=== PATIENT | male | born 1950 | race Caucasian/White ===

== ENCOUNTER 2020-08-26 06:10 | Day surgery (SDC) | payer OTHER, SELFPAY ==
[2020-08-26 06:24] VITALS: BP 100/60; PULSE 70; RESP 20; TEMP 36.5; O2SAT 96
[2020-08-26] MEDS: Lactated Ringers 1,000 ML 80 ML IV (07:07)
[2020-08-26] MEDS: Povidone-Iodine Soln. 118 ML BTL TP (07:07)
--- NOTE | 2020-08-26 07:11 | W.PM.HP.N ---
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 Nonsurgical options have failed to provide significant relief of symptoms. He is opting for surgical intervention. [facility] Medical History Acquired cystic kidney disease Adenomatous polyp Cervical radiculopathy 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 pt. states he has had asthma since he was a kid COPD (chronic obstructive pulmonary disease) Hyperlipemia Hypertension Hypomagnesemia Increased white blood cell count Intestinal obstruction Kidney disorder Malignant tumor of larynx Nicotine dependence TIFFANY (obstructive sleep apnea) Psychophysiologic insomnia Raised prostate specific antigen Sinusitis Spasm of muscle, back Syncope and collapse Type II diabetes mellitus Surgical History H/O colonoscopy History of back surgery History of cholecystectomy History of ear surgery Inner ear surgery History of esophagogastroduodenoscopy (EGD) History of throat surgery Cancerous lump removed from throat History of tonsillectomy Hx of appendectomy Hx of knee surgery Social History Smoking/Tobacco Use Status: Current every day Tobacco Type: cigarettes Smoking risk assessment performed?: Yes Alcohol Intake: never Substance use type: does not use Additional Social history: daughter is here, unable to assess privately Meds Allergies and Home Medications Allergies Allergy/AdvReac Type Severity Reaction Status Date / Time acetaminophen Allergy Severe Hives Unverified 08/24/20 14:32 bee pollen Allergy Severe Anaphylaxis Unverified 08/24/20 14:32 clindamycin Allergy Severe Hives Unverified 08/24/20 14:32 meperidine [From Demerol] Allergy Severe Anaphylaxis Unverified 08/24/20 14:32 Penicillins Allergy Severe Hives Unverified 08/24/20 14:32 Sulfa (Sulfonamide Allergy Severe Hives Unverified 08/24/20 14:32 Antibiotics) Home Medications Medication Instructions Recorded Confirmed Type albuterol sulfate 2.5 mg INHALATION QID PRN 08/24/20 08/26/20 History amlodipine [Norvasc] 5 mg PO HS 08/24/20 08/26/20 History aspirin 81 mg PO DAILY 08/24/20 08/24/20 History atorvastatin 80 mg PO HS 08/24/20 08/26/20 History budesonide-formoterol [Symbicort] 1 puff INHALATION DAILY 08/24/20 08/26/20 History buspirone 15 mg PO BID 08/24/20 08/26/20 History clonazepam 1 mg PO HS 08/24/20 08/26/20 History diphenhydramine HCl 25 mg PO HS 08/24/20 08/26/20 History enalapril maleate [Vasotec] 2.5 mg PO HS 08/24/20 08/26/20 History gabapentin 600 mg PO TID 08/24/20 08/26/20 History ibuprofen 600 mg PO Q8H PRN 08/24/20 08/26/20 History ipratropium bromide 3 ml INHALATION QID 08/24/20 08/26/20 History isosorbide mononitrate 60 mg PO DAILY 08/24/20 08/26/20 History linaclotide [Linzess] 145 mcg PO DAILY PRN 08/24/20 08/26/20 History lorazepam 2 mg PO HS 08/24/20 08/26/20 History magnesium hydroxide [Milk of 400 mg PO DAILY PRN 08/24/20 08/26/20 History Magnesia] melatonin 1 mg PO HS 08/24/20 08/26/20 History metformin 500 mg PO BID 08/24/20 08/26/20 History nitroglycerin 0.4 mg SUBLINGUAL DIRECTED PRN 08/24/20 08/26/20 History oxycodone 15 mg PO Q4H PRN 08/24/20 08/26/20 History zolpidem [Ambien] 10 mg PO HS 08/24/20 08/26/20 History Exam Narrative Exam Narrative: 70-year-old male in no acute distress for surgical resection symptomatic first metatarsocuneiform joint exostosis of the right foot. Head normal cephalic Eyes PERRLA Hearing is adequate Heart had regular rate and rhythm I detected no gallops rubs or murmurs Lung correa were clear Abdomen was soft nontender bowel sounds appreciated Peripheral pulses are manually palpable at the ankle plus 1 out of 4 bilaterally capillary refills under 3 seconds to all toes no edema. A large first metatarsocuneiform dorsal exostosis is noted right foot with tenderness noted around the joint region as well as the overlying structures. Neurologically grossly intact toes are downgoing no focal deficits Impressions: Symptomatic right first metatarsocuneiform dorsal exostosis formation Plan: Shelton is being brought to the OR for surgical resection exostosis from the right midfoot. He understands risk and complications of surgery pertaining to the potential for pain, scarring, infection, instability the first metatarsocuneiform joint with advancing degenerative arthrosis requiring potential revisional procedures including fusion. No promises have been made to the final outcome of surgery. Informed consent has been obtained. Results Last Vital Signs Temp 36.5 C 08/26/20 06:24 Pulse 70 08/26/20 06:24 Resp 20 08/26/20 06:24 BP 100/60 08/26/20 06:24 Pulse Ox 96 08/26/20 06:24
--- NOTE | 2020-08-26 07:13 | W.ANESPRE ---
General Info Date of Service Date Performed: 08/26/20 Height: 6 ft 3.98 in Weight: 116.4 kg Body Mass Index (BMI): 31.2 Surgical Procedure: Operation Date: 08/26/20 07:40 Proposed Procedures Side Surgeon p EXOSECTOMY RT MID FOOT Right Conrad Samuels DPM Meds Allergies and Home Medications Allergies Allergy/AdvReac Type Severity Reaction Status Date / Time acetaminophen Allergy Severe Hives Unverified 08/24/20 14:32 bee pollen Allergy Severe Anaphylaxis Unverified 08/24/20 14:32 clindamycin Allergy Severe Hives Unverified 08/24/20 14:32 meperidine [From Demerol] Allergy Severe Anaphylaxis Unverified 08/24/20 14:32 Penicillins Allergy Severe Hives Unverified 08/24/20 14:32 Sulfa (Sulfonamide Allergy Severe Hives Unverified 08/24/20 14:32 Antibiotics) Home Medication Medication Instructions Recorded albuterol sulfate 2.5 mg INHALATION QID PRN 08/24/20 amlodipine [Norvasc] 5 mg PO HS 08/24/20 aspirin 81 mg PO DAILY 08/24/20 atorvastatin 80 mg PO HS 08/24/20 budesonide-formoterol [Symbicort] 1 puff INHALATION DAILY 08/24/20 buspirone 15 mg PO BID 08/24/20 clonazepam 1 mg PO HS 08/24/20 diphenhydramine HCl 25 mg PO HS 08/24/20 enalapril maleate [Vasotec] 2.5 mg PO HS 08/24/20 gabapentin 600 mg PO TID 08/24/20 ibuprofen 600 mg PO Q8H PRN 08/24/20 ipratropium bromide 3 ml INHALATION QID 08/24/20 isosorbide mononitrate 60 mg PO DAILY 08/24/20 linaclotide [Linzess] 145 mcg PO DAILY PRN 08/24/20 lorazepam 2 mg PO HS 08/24/20 magnesium hydroxide [Milk of 400 mg PO DAILY PRN 08/24/20 Magnesia] melatonin 1 mg PO HS 08/24/20 metformin 500 mg PO BID 08/24/20 nitroglycerin 0.4 mg SUBLINGUAL DIRECTED PRN 08/24/20 oxycodone 15 mg PO Q4H PRN 08/24/20 zolpidem [Ambien] 10 mg PO HS 08/24/20 Current Visit Medications: Current Medications Generic Name Dose Route Start Last Admin Trade Name Freq PRN Reason Stop Dose Admin Sodium Chloride 500 mls @ 0 mls/hr 08/26/20 06:00 Saline 500ml Bag IV PRN PRN As Directed Ringer's Solution 1,000 mls @ 80 mls/hr 08/26/20 06:00 IV 09/24/20 23:59 INFUSION SHELLIE Vancomycin HCl 500 mg/ Sodium 100 mls @ 100 mls/hr 08/26/20 06:00 Chloride IVPB 08/26/20 16:00 PREOP SHELLIE IV Miscellaneous Supplies 1 each 08/26/20 06:00 Iv Access IV DIRECTED SHELLIE IV Miscellaneous Supplies 1 each 08/26/20 06:00 Iv Access IV 09/24/20 23:59 DIRECTED SHELLIE Povidone Iodine 0 ml 08/26/20 06:00 Povidone-Iodine Soln. 118 Ml Btl TP DIRECTED SHELLIE Sodium Chloride 0 ml 08/26/20 06:00 Normal Saline Flush 10 Ml Syr IVP PRN PRN Sodium Chloride 0 ml 08/26/20 06:00 Normal Saline Flush 10 Ml Syr IV 09/24/20 23:59 PRN PRN Sodium Chloride 0 ml 08/26/20 06:00 Normal Saline 10 Ml Vial IJ 09/24/20 23:59 DIRECTED PRN Sterile Water 0 ml 08/26/20 06:00 Water,Injection,Sterile 10 Ml Vial IJ 09/24/20 23:59 DIRECTED PRN PFS Medical History Medical History Acquired cystic kidney disease Adenomatous polyp Cervical radiculopathy 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 pt. states he has had asthma since he was a kid COPD (chronic obstructive pulmonary disease) Hyperlipemia Hypertension Hypomagnesemia Increased white blood cell count Intestinal obstruction Kidney disorder Malignant tumor of larynx Nicotine dependence TIFFANY (obstructive sleep apnea) Psychophysiologic insomnia Raised prostate specific antigen Sinusitis Spasm of muscle, back Syncope and collapse Type II diabetes mellitus Surgical History Surgical History H/O colonoscopy History of back surgery History of cholecystectomy History of ear surgery Inner ear surgery History of esophagogastroduodenoscopy (EGD) History of throat surgery Cancerous lump removed from throat History of tonsillectomy Hx of appendectomy Hx of knee surgery Tobacco Smoking/Tobacco Use Status: Current every day Tobacco Type: cigarettes Alcohol Alcohol Intake: never Substance Use Substance use type: does not use Vital Signs and Lab Results Vital Signs Most Recent Vital Signs in EMR: Most Recent Vital Signs Temp Pulse Resp BP Pulse Ox 36.5 C 70 20 100/60 96 08/26/20 06:24 08/26/20 06:24 08/26/20 06:24 08/26/20 06:24 08/26/20 06:24 Lab Results Blood Type / Crossmatch: No Data to Display Complete Blood Count: No Data to Display Complete Metabolic Panel: No Data to Display Liver Function Panel: No Data to Display Coagulation Panel: No Data to Display Cardiac Panel: No Data to Display Arterial Blood Gas: No Data to Display Venous Blood Gas: No Data to Display Pancreas Panel: No Data to Display Thyroid Panel: No Data to Display Infectious Disease: No Data to Display Blood Cultures: No Data to Display Toxicology Panel: No Data to Display Anesthesia Assessment and Plan Anesthesia History Personal History: No History of Anesthesia Complications Family History: No Family History of Anesthesia Complications Exercise Tolerance Exercise Tolerance: Metabolic Equivalents<4 Pertinent Negatives Pertinent Negatives: No Symptoms of GERD (Rare. Occasional med) and No Major Cardiovascular Symptoms or Complaints Cardiac & Pulmonary Exam Cardiac Exam: Normal S1/S2 Heart Sounds Pulmonary Exam: Clear Bilateral Breath Sounds Airway Exam Known Difficult Airway: No Mallampati Class: 3 Mouth Opening: Normal (> 3cm) Thyromental Distance: Greater than 3 cm Neck Range of Motion: Full ROM Neck Circumference: Normal Teeth Condition: Removable Dentures/Plates Lower ASA Classification ASA Score: ASA 2 Emergency Case?: No NPO Status NPO Status: NPO Clears >2 hours, Solids >8 hours Anesthesia Plan Resuscitation Status: Full Code Anesthesia Technique: General Anesthesia Airway Planned: Natural Airway Monitors Used: Standard Monitors
[2020-08-26 07:17] VITALS: BMI 31.2
[2020-08-26] MEDS: VANCOMYCIN 500 MG in Normal Saline 100 ML 100 MG IVPB (07:36)
[2020-08-26] MEDS: Lidocaine 1% Multi-Dose 50 ML VIAL (08:07)
[2020-08-26] MEDS: Bupivacaine 0.5% Pres-Free 30 ML VIAL (08:09)
[2020-08-26] MEDS: Dexamethasone 4 MG/ML VIAL (08:16)
--- NOTE | 2020-08-26 08:28 | W.PM.DSUDISC ---
Discharge Plan Disposition Patient Disposition: HOME Condition: Good Discharge Details Reason For Visit: Resection first metatarsocuneiform exostosis right Attending Provider: Conrad Samuels Primary Care Provider: Carmella Hoover Home Meds and New Rx's Prescriptions: Continued atorvastatin 80 mg Tablet 80 mg PO HS RF: 0 gabapentin 600 mg Tablet 600 mg PO TID RF: 0 albuterol sulfate 2.5 mg /3 mL (0.083 %) Solution For Nebulization 2.5 mg inhalation QID PRNRF: 0 enalapril maleate [Vasotec] 2.5 mg Tablet 2.5 mg PO HS RF: 0 amlodipine [Norvasc] 5 mg Tablet 5 mg PO HS RF: 0 oxycodone 15 mg Tablet 15 mg PO Q4H PRNRF: 0 aspirin 81 mg Capsule,Delayed Release(Dr/Ec) 81 mg PO DAILY RF: 0 isosorbide mononitrate 60 mg Tablet Extended Release 24 Hr 60 mg PO DAILY RF: 0 magnesium hydroxide [Milk of Magnesia] 400 mg/5 mL Suspension 400 mg PO DAILY PRNRF: 0 lorazepam 2 mg Tablet 2 mg PO HS RF: 0 diphenhydramine HCl 25 mg Tablet 25 mg PO HS RF: 0 nitroglycerin 0.4 mg Tablet, Sublingual 0.4 mg sublingual DIRECTED PRNRF: 0 ibuprofen 600 mg Tablet 600 mg PO Q8H PRNRF: 0 zolpidem [Ambien] 10 mg Tablet 10 mg PO HS RF: 0 metformin 500 mg Tablet Extended Release 24 Hr 500 mg PO BID RF: 0 ipratropium bromide 0.02 % Solution 3 ml inhalation QID RF: 0 buspirone 15 mg Tablet 15 mg PO BID RF: 0 clonazepam 1 mg Tablet,Disintegrating 1 mg PO HS RF: 0 melatonin 1 mg Tablet 1 mg PO HS RF: 0 budesonide-formoterol [Symbicort] 80-4.5 mcg/actuation Hfa Aerosol Inhaler 1 puff INHALATION DAILY RF: 0 Linzess 145 mcg Capsule 145 mcg PO DAILY PRNRF: 0 Discharge Instructions Activity:: Elevate Remove Dressings/Wound Care:: Do Not Remove Shower/Bathe:: Cover Diet:: Normal Diet Discharge Orders Discharge Orders: Discharge Order (Routine); Ordered 08/26/20 Ordered By: Conrad Samuels DS: Diagnosis Discharge Diagnosis (1) Exostosis of bone of foot: Status: Acute
--- NOTE | 2020-08-26 08:30 | W.PM.OP ---
Date of service: 08/26/20 Time of Service: 08:30 Operative Note Operative Note Refer to Anesthesia Record Preop diagnosis first metatarsocuneiform joint exostosis of the right foot Postop diagnosis same Anesthesia: Local anesthetic applied to the operative site consisting of 10 cc 50: 50 mixture 1% lidocaine plain, 0.5% Marcaine plain Operative indications 70-year-old male with pain associated with a midtarsal dorsal exostosis of the right first metatarsal cuneiform joint interfering with shoe gear and comfortable ambulation. Shelton was brought to the operative suite placed in the supine position with the right foot prepped and draped in the usual sterile podiatric fashion. Timeout was performed for safety surgery by protocol. Anesthesia being obtained the right foot was exsanguinated and a well-padded ankle tourniquet inflated 250 mmHg. Attention was directed to the first metatarsocuneiform joint dorsally where a large bony exostosis noted. Incision was placed directly over the exostosis measuring 2-1/2 cm in length. The incision was placed in controlled depth fashion going through the skin. The deeper layers was then dissected moving the extensor tendons laterally and dissecting down to the periosteum. The periosteum was incised midline and retracted medially and laterally. Large dorsal exostoses from the first metatarsal base cuneiform joint observed. With osteotome and mallet the exostosis was resected proximally distally medially and laterally. A hand rasp was then used to smooth all rough and bony edges. Copious irrigation was performed. Good resection of bone noted. The periosteum was repaired with 3-0 Vicryl, the subcutaneous layer was repaired with 3-0 Vicryl then 4-0 Vicryl and the skin was coapted with continuous running 4-0 Monocryl suture. 4 mg of dexamethasone phosphate was infused within the wound. Mastisol half-inch Steri-Strips applied. Xeroform gauze fluff compression dressings applied. Tourniquet was released at approximately 30 minutes with vascularity returning immediately to all toes. Sharp and sponge counts were correct x2. Patient was transferred to day surgery and will be followed by myself in the office next week.
[2020-08-26 08:31] VITALS: BP 109/67; PULSE 71; RESP 18; TEMP 36.8; O2SAT 94
--- NOTE | 2020-08-26 08:35 | W.ANESPOSTOP ---
Postoperative Evaluation Date, Time and Location Date Performed: 08/26/20 Time Performed: 08:35 Patient Location: Day Surgery Unit Vital Signs Most Recent Imported Vital Signs: Most Recent Vital Signs Temp Pulse Resp BP Pulse Ox 36.5 C 70 20 100/60 96 08/26/20 06:24 08/26/20 06:24 08/26/20 06:24 08/26/20 06:24 08/26/20 06:24 Most Recent Manually Entered Vital Signs: Adult Blood Pressure: 109/67 Heart Rate: 72 Respirations: 18 Oxygen Saturation (%): 94 Temperature (C): 36 C Pain Score (0-10 Scale): 0 Pain Score Most Recent Pain Score: 0 Assessment Mental Status: Arousable with meaningful communication Airway and Respiratory Function: Patent airway with normal (patient baseline) respiratory exam Cardiovascular Function: Hemodynamically Stable Hydration Status: Adequately Hydrated Nausea & Vomiting: No Nausea or Vomiting Pain: Pt. Denies Any Pain Peripheral Nerve Block: Patient did not receive a nerve block
[2020-08-26 08:37] VITALS: BP 109/67; PULSE 72; RESP 18; TEMPC 36; O2SAT 94
[2020-08-26 09:06] VITALS: BP 110/44; PULSE 65; RESP 16; TEMP 36.2; O2SAT 97
== END 2020-08-26 09:30 | disposition home or self-care (01) ==
PROVIDERS: PCP Physician Assistant Medical; Visit Provider Podiatrist
PROC: (CPT 28288; principal; 2020-08-26 07:30)
DX: M89.8X7 Other specified disorders of bone, ankle and foot (principal); J44.9 Chronic obstructive pulmonary disease, unspecified; I10 Essential (primary) hypertension; E78.5 Hyperlipidemia, unspecified; G47.33 Obstructive sleep apnea (adult) (pediatric); F17.210 Nicotine dependence, cigarettes, uncomplicated; E11.9 Type 2 diabetes mellitus without complications
CPT/HCPCS: 28104; J1100

== ENCOUNTER 2021-08-23 11:10 | Emergency (ER) | payer MEDICARE, SELFPAY ==
[2021-08-23 11:14] VITALS: BP 113/66; PULSE 77; RESP 18; O2SAT 97
--- NOTE | 2021-08-23 11:30 | DI.CT_ITS ---
Exam(s) CT HEAD WO EXAM: CT HEAD WO CLINICAL HISTORY: fall/hit head. TECHNIQUE: Imaging Protocol: Axial computed tomography images with coronal and sagittal reformatted images were created and reviewed COMPARISON: No exams were available for comparison FINDINGS: Ventricles and Extra axial spaces: Normal in size and morphology for the patient's age. Hemorrhage: None. Cerebral parenchyma: No acute territorial infarct. There are areas of decreased attenuation in the w angel matter most consistent with small vessel ischemic disease. Midline shift: None. Brainstem/Cerebellum: Normal. Calvarium: Normal. Visualized Paranasal sinuses/Mastoids: No air-fluid levels. Soft Tissues: Unremarkable. IMPRESSION: 1. No acute intracranial process. 2. Results of this exam have been verbally communicated with provider. RADIATION DOSE DELIVERED: 787.47mGy.cm Total DLP DATA REPOSITORY: All CT scans at this facility are submitted to the National Radiology Data Registry (NRDR) Dose Index Registry (DIR) with the [employer] ([employer]). RADIATION OPTIMIZATION: All CT scans at this facility use at least one of these dose optimization te chniques: automated exposure control; mA and/or kV adjustment per patient size (includes targeted exa ms where dose is matched to clinical indication); or iterative reconstruction.
--- NOTE | 2021-08-23 11:43 | ED.GENADUL_ITS ---
Discharge Plan Disposition Patient Disposition: HOME Condition: Stable Discharge Details Chief Complaint: Orthopedic Clinical Impression: Injury of knee, right, Head injury Primary Care Provider: Carmella Hoover ED Provider: Romie Lorenz Home Meds and New Rx's Prescriptions: Continued atorvastatin 80 mg Tablet 80 mg PO HS gabapentin 600 mg Tablet 600 mg PO TID albuterol sulfate 2.5 mg /3 mL (0.083 %) Solution For Nebulization 2.5 mg inhalation QID PRN enalapril maleate [Vasotec] 2.5 mg Tablet 2.5 mg PO HS amlodipine [Norvasc] 5 mg Tablet 5 mg PO HS oxycodone 15 mg Tablet 15 mg PO Q4H PRN aspirin 81 mg Capsule,Delayed Release(Dr/Ec) 81 mg PO DAILY isosorbide mononitrate 60 mg Tablet Extended Release 24 Hr 60 mg PO DAILY magnesium hydroxide [Milk of Magnesia] 400 mg/5 mL Suspension 400 mg PO DAILY PRN lorazepam 2 mg Tablet 2 mg PO HS diphenhydramine HCl 25 mg Tablet 25 mg PO HS nitroglycerin 0.4 mg Tablet, Sublingual 0.4 mg sublingual DIRECTED PRN ibuprofen 600 mg Tablet 600 mg PO Q8H PRN zolpidem [Ambien] 10 mg Tablet 10 mg PO HS metformin 500 mg Tablet Extended Release 24 Hr 500 mg PO BID ipratropium bromide 0.02 % Solution 3 ml inhalation QID buspirone 15 mg Tablet 15 mg PO BID clonazepam 1 mg Tablet,Disintegrating 1 mg PO HS melatonin 1 mg Tablet 1 mg PO HS Linzess 145 mcg Capsule 145 mcg PO DAILY PRN magnesium hydroxide [Milk of Magnesia] 400 mg/5 mL Suspension budesonide-formoterol [Symbicort] 80-4.5 mcg/actuation Hfa Aerosol Inhaler 2 puff INHALATION BID Discharge Instructions Instructions: Head Injury (ED), Swollen Knee Joint (ED) Additional Instructions: CT imaging of brain and x-ray of right knee are both unremarkable for any obvio us emergent process. Rest, elevate, cool compresses every 2 hours for 20 minutes. [id number] medications as directed for symptomatic control. Wear knee brace and use walker as needed, advance activity as tolerated. Please watch for new or worsening symptoms and return to the ER for any concerns. Referral to orthopedics has been provided, if symptoms not improving over the next 5 days with conservative management I would recommend outpatient follow-up with orthopedics Referrals: Shan Chiang MD [ [facility] STAFF PHYSICIAN] - Medical Decision Making 71-year-old gentleman who had a mechanical fall last night injuring his right knee and striking his head, denies LOC or headache. He is not anticoagulated. He is neurologically intact. Knee appears stable. Plan to obtain CT imaging of his head as well as a x-ray of his knee CT imaging and x-ray both unremarkable per radiology for any acute process Discussed x-ray findings with patient and family. Discussed disposition. Plan is to trial a long-leg knee immobilizer and a walker, he already has a walker at home. We will also refer to orthopedics for his knee discomfort Patient was able to tolerate the ambulation trial without difficulty. Feels well enough for discharge. Standard discharge and return precautions were provided. Patient understands, is agreeable to this plan, and has no additional questions or concerns upon discharge. This documentation was generated using [employer] system, please disregard any oddities of phrase or misspellings. Medical Records Medical records reviewed: Yes I reviewed the patient's medical records. Imaging Data Radiologic Study: Attestation: I personally reviewed and interpreted this imaging study as follows: Imaging: CT Scan Radiologist's impression: Exam(s) CT HEAD WO EXAM: CT HEAD WO CLINICAL HISTORY: fall/hit head. TECHNIQUE: Imaging Protocol: Axial computed tomography images with coronal and sagittal reformatted images were created and reviewed COMPARISON: No exams were available for comparison FINDINGS: Ventricles and Extra axial spaces: Normal in size and morphology for the patient's age. Hemorrhage: None. Cerebral parenchyma: No acute territorial infarct. There are areas of decreased attenuation in the white matter most consistent with small vessel ischemic disease. Midline shift: None. Brainstem/Cerebellum: Normal. Calvarium: Normal. Visualized Paranasal sinuses/Mastoids: No air-fluid levels. Soft Tissues: Unremarkable. IMPRESSION: 1. No acute intracranial process. 2. Results of this exam have been verbally communicated with provider. Radiologic Study #2: Attestation: I personally reviewed and interpreted this imaging study as follows: Imaging: X-Ray Radiologist's impression: No acute findings per radiology HPI General Mode of arrival: wheelchair . Date/Time Provider Initiated Documentation: 08/23/21 11:13 . Limitations to Documentation: no limitations . Information obtained by: patient and family . History of Present Illness 71 year old M presents to the emergency department with the chief complaint of Knee pain, described as moderate, with intensity rated at 7. Quality is described as aching, and is localized to the head, right and lower extremity. Patient reports no radiation. Patient started experiencing this day(s) (1) and it has been constant. Immobilization improves symptom(s), Movement worsens symptoms . Patient notes no other symptoms.. Patient did receive the following treatments prior to arrival, none Related Data Home Medications Medication Instructions Recorded Confirmed albuterol sulfate 2.5 mg/3 mL 2.5 mg inhalation QID PRN 08/24/20 08/23/21 (0.083 %) solution for nebulization amlodipine 5 mg tablet (Norvasc) 5 mg PO HS 08/24/20 08/23/21 aspirin 81 mg capsule,delayed 81 mg PO DAILY 08/24/20 08/23/21 release atorvastatin 80 mg tablet 80 mg PO HS 08/24/20 08/23/21 buspirone 15 mg tablet 15 mg PO BID 08/24/20 08/23/21 clonazepam 1 mg disintegrating 1 mg PO HS 08/24/20 08/23/21 tablet diphenhydramine HCl 25 mg tablet 25 mg PO HS 08/24/20 08/23/21 enalapril maleate 2.5 mg tablet 2.5 mg PO HS 08/24/20 08/23/21 (Vasotec) gabapentin 600 mg tablet 600 mg PO TID 08/24/20 08/23/21 ibuprofen 600 mg tablet 600 mg PO Q8H PRN 08/24/20 08/23/21 ipratropium bromide 0.02 % 3 ml inhalation QID 08/24/20 08/23/21 solution for inhalation isosorbide mononitrate 60 mg 60 mg PO DAILY 08/24/20 08/26/20 tablet,extended release 24 hr linaclotide 145 mcg capsule 145 mcg PO DAILY PRN 08/24/20 08/23/21 (Linzess) lorazepam 2 mg tablet 2 mg PO HS 08/24/20 08/23/21 magnesium hydroxide 400 mg/5 mL 400 mg PO DAILY PRN 08/24/20 08/23/21 oral suspension (Milk of Magnesia) melatonin 1 mg tablet 1 mg PO HS 08/24/20 08/23/21 metformin 500 mg tablet,extended 500 mg PO BID 08/24/20 08/23/21 release 24 hr nitroglycerin 0.4 mg sublingual 0.4 mg sublingual DIRECTED PRN 08/24/20 08/23/21 tablet oxycodone 15 mg tablet 15 mg PO Q4H PRN 08/24/20 08/23/21 zolpidem 10 mg tablet (Ambien) 10 mg PO HS 08/24/20 08/23/21 budesonide-formoterol HFA 80 2 puff inhalation BID 08/23/21 08/23/21 mcg-4.5 mcg/actuation aerosol inhaler (Symbicort) magnesium hydroxide 400 mg/5 mL 08/23/21 oral suspension (Milk of Kimber) Allergies Allergy/AdvReac Type Severity Reaction Status Date / Time acetaminophen Allergy Severe Hives Unverified 08/23/21 11:19 bee pollen Allergy Severe Anaphylaxis Unverified 08/23/21 11:19 clindamycin Allergy Severe Hives Unverified 08/23/21 11:19 meperidine [From Demerol] Allergy Severe Anaphylaxis Unverified 08/23/21 11:19 Penicillins Allergy Severe Hives Unverified 08/23/21 11:19 Sulfa (Sulfonamide Allergy Severe Hives Unverified 08/23/21 11:19 Antibiotics) General Stated Complaint: Orthopedic SD: 4 Review of Systems Constitutional Constitutional: Denies fever(s), Denies headache(s) and Denies weakness Eyes Eyes: Denies change in vision ENT Ears, Nose, Mouth, and Throat: Denies headache(s) and Reports neck pain (chronic, unchanged) Cardiovascular Cardiovascular: Denies chest pain and Denies dyspnea Respiratory Respiratory: Denies cough and Denies dyspnea Gastrointestinal Gastrointestinal: Denies abdominal pain, Denies nausea and Denies vomiting Musculoskeletal Musculoskeletal: Reports back pain (chronic) and Reports neck pain (chronic, unchanged) Integumentary/Breasts Skin/Breast: Denies rash Neurologic Neurologic: Denies headache(s) and Denies weakness Hematologic/Lymphatic Hematologic/Lymphatic: Denies easy bleeding and Denies easy bruising PFSH All Active Problems (Updated 08/23/21 @ 14:07 by LILIANA Bermudez) Injury of knee, right (Acute) Head injury (Acute) Exostosis of bone of foot (Acute) Medical History Acquired cystic kidney disease Adenomatous polyp Cervical radiculopathy 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 pt. states he has had asthma since he was a kid COPD (chronic obstructive pulmonary disease) Hyperlipemia Hypertension Hypomagnesemia Increased white blood cell count Intestinal obstruction Kidney disorder Malignant tumor of larynx Nicotine dependence TIFFANY (obstructive sleep apnea) Psychophysiologic insomnia Raised prostate specific antigen Sinusitis Spasm of muscle, back Syncope and collapse Type II diabetes mellitus Surgical History H/O colonoscopy History of back surgery History of cholecystectomy History of ear surgery Inner ear surgery History of esophagogastroduodenoscopy (EGD) History of throat surgery Cancerous lump removed from throat History of tonsillectomy Hx of appendectomy Hx of knee surgery Social History Smoking/Tobacco Use Status: Current every day Tobacco Type: cigarettes Smoking risk assessment performed?: Yes Alcohol Intake: never Drug use: Never Substance use type: does not use Do you feel safe at home: Yes Do you feel safe in your relationship?: Yes Additional Social history: daughter is here, unable to assess privately Exam Const General: cooperative, healthy appearing, comfortable and no acute distress Orientation: alert and awake HENNV Head: normal to inspection, normocephalic and atraumatic Face and sinus: normal facial exam Mouth: moist mucous membranes Eyes General: appearance normal, both eyes and all related structures Conjunctivae: conjunctivae normal Neck Neck: normal visual inspection, full ROM, trachea midline and supple Resp Effort & Inspection: normal respiratory effort and able to speak in complete sentences Cardio Rate: regular rate Rhythm: regular rhythm Skin General skin exam: no rashes or lesions noted Neuro General: patient alert, patient awake, patient oriented x3, moves all extremities and no focal motor deficits Cognition: normal cognition Speech: speech normal Gait: antalgic Motor: muscle tone normal throughout Sensory Exam: no sensory deficits noted Extrem General: full ROM and capillary refill normal Right lower extremity: full ROM and normal capillary refill Other: Right knee with diffuse anterior mild swelling and tenderness, no deformity. No joint instability or laxity. There is mild discomfort with varus and valgus stress, negative anterior draw sign. Normal capillary refill and pedal pulse. Psych Appearance: grossly normal Mental Status: mental status grossly normal Course Vital Signs Vital signs: Vital Signs Pulse 77 08/23/21 11:14 Respiratory Rate 18 08/23/21 11:14 Blood Pressure 113/66 08/23/21 11:14 Pulse Oximetry 97 08/23/21 11:14 Pulse 77 08/23/21 11:14 Respiratory Rate 18 08/23/21 11:14 Respiratory Effort 08/23/21 11:17 Blood Pressure 113/66 08/23/21 11:14 Blood Pressure Position Sitting 08/23/21 11:14 Pulse Oximetry 97 08/23/21 11:14 Oxygen Delivery Method Room Air 08/23/21 11:14 Oxygen Flow Rate 0 08/23/21 11:14 Pain Level 10 08/23/21 11:14
--- NOTE | 2021-08-23 12:48 | DI.RAD_ITS ---
Exam(s) XR KNEE RT 4V+ EXAM: XR KNEE RT 4V+ CLINICAL HISTORY: fall/pain. TECHNIQUE: 2D digital imaging was performed of the right knee. Four views obtained. AP, lateral, Me rchant and PA tunnel views were obtained. COMPARISON: No exams were available for comparison FINDINGS: BONES: No acute fracture is present. No bony destructive lesion is seen. Enthesophytes are seen at th e anterior patella. JOINTS: The knee is normally aligned. There is a small joint effusion. Mild degenerative changes are seen in the knee. SOFT TISSUE: Normal. IMPRESSION: 1. No acute fracture or dislocation. 2. Results of this exam have been verbally communicated with provider. DATA REPOSITORY: RADIATION DOSE DELIVERED:
[2021-08-23 14:17] VITALS: BP 142/77; PULSE 77; RESP 16; O2SAT 99
== END 2021-08-23 14:21 | disposition home or self-care (01) ==
PROVIDERS: Emergency Provider Physician Assistant; PCP Physician Assistant Medical
DX: S89.81XA Other specified injuries of right lower leg, initial encounter (principal); S09.8XXA Other specified injuries of head, initial encounter; W18.39XA Other fall on same level, initial encounter
CPT/HCPCS: 29505; 99284; 70450; 73564; 99283

== ENCOUNTER 2021-09-29 13:29 | Outpatient (CLI) | payer MEDICARE, SELFPAY ==
--- NOTE | 2021-09-29 13:15 | RT.EKG_ITS ---
APPROVED REPORT Exam: Resting ECG Reason for Exam: syncope Patient Location: O HR:83 bpm ECG Measurements Heart Rate 83 AXIS OR 173 P 42 QRSd 109 QRS 43 QT 358 T 44 QTc 421 Conclusion Sinus rhythm...normal P axis, V-rate 50- 99 Normal Electrocardiogram
== END 2021-09-29 13:30 | disposition home or self-care (01) ==
LOC: DI.CARD 13:31
PROVIDERS: PCP Physician Assistant Medical; Visit Provider Internal Medicine Cardiovascular Disease
DX: R55 Syncope and collapse (principal)
CPT/HCPCS: 93010

== ENCOUNTER → 2021-09-29 13:43 | Outpatient (BNVA) | payer MEDICARE, SELFPAY | PROVIDERS: PCP Physician Assistant Medical; Referring Provider Physician Assistant Medical; Visit Provider Internal Medicine Cardiovascular Disease | DX: R55 Syncope and collapse (principal); I25.10 Atherosclerotic heart disease of native coronary artery without angina pectoris | CPT/HCPCS: 93005; 99203; 99213 ==